=== PATIENT | male | born 1990 | race Caucasian/White ===

== ENCOUNTER 2017-04-14 20:17 | Emergency (ER) | payer OTHER ==
[2017-04-14] MEDS: IBUPROFEN 600 MG TAB PO (23:03)
== END 2017-04-15 00:56 | disposition home or self-care (01) ==
LOC: FTE 04-15 00:56
DX: S50.11XA Contusion of right forearm, initial encounter (principal); W18.39XA Other fall on same level, initial encounter; Y92.9 Unspecified place or not applicable
CPT/HCPCS: 73090; 73090-RT; 99283-25